=== PATIENT | female | born 1980 | race Caucasian/White ===

== ENCOUNTER 2019-05-08 22:46 | Emergency (ER) | payer BC ==
[~2019-05-08] VITALS: Ht 170.2 cm; Wt 105.8 kg
[2019-05-08 22:47] VITALS: BP 143/94
[2019-05-08] MEDS ORDERED: FLUORESCEIN OPHTHALMIC 1 MG STRIP ONE (22:53)
[2019-05-08] MEDS ORDERED: PROPARACAINE OPHTH 0.5%, 15ML ONE (22:53)
--- NOTE | 2019-05-08 22:58 | NUR ---
ERP TO BEDSIDE.
[2019-05-08] MEDS ORDERED: OFLOXACIN OPHTH 0.3%, 5ML LEFTEYE SCH (23:30)
== END 2019-05-08 23:41 | disposition home or self-care (01) ==
LOC: ED 23:30
DX: H10.022 Other mucopurulent conjunctivitis, left eye (principal)
CPT/HCPCS: 99283